=== PATIENT | female | born 1955 | race African-American/Black ===

== ENCOUNTER 2019-08-06 16:16 | Inpatient (IN) | payer OTHER ==
[~2019-08-06] VITALS: Ht 165.1 cm; Wt 63.5 kg
[2019-08-06 16:18] VITALS: BP 120/78
[2019-08-06 17:36] LABS: ABSOLUTE NEUTROPHILS 3.9 thou/uL (1.4-8.2); BASOPHILS 0.6 % (0.0-2.0); EOSINOPHILS 2.9 % (0.0-3.0); HEMATOCRIT 35.1 % (37.0-47.0); HEMOGLOBIN 11.5 gm/dL (12.0-15.0); LYMPHOCYTES 25.5 % (24.0-44.0); MCH 28.2 pg (26.0-34.0); MCHC 32.8 g/dL (28.0-37.0); MCV 85.9 fL (80.0-100.0); MONOCYTES 9.3 % (1.0-8.0); PLATELET COUNT 251 thou/uL (150-400); POLYS 61.7 % (36.0-66.0); RBC 4.08 mil/uL (4.20-5.00); RDW 14.6 % (10.5-14.5); WBC 6.4 thou/uL (4.0-11.0)
[2019-08-06 17:44] LABS: CALCIUM 8.9 mg/dL (8.5-10.1); CREATININE 0.9 mg/dL (0.6-1.0); POTASSIUM 3.8 mmol/L (3.5-5.1)
[2019-08-06 17:50] LABS: ALBUMIN 3.2 g/dL (3.4-5.0); APTT 36.3 Seconds (24.5-32.8); INR 1.2; PROTIME 12.1 Seconds (9.3-11.4); TOTAL BILIRUBIN 0.3 mg/dL (<0.1-1.0); TOTAL PROTEIN 8.6 g/dL (6.4-8.2)
--- NOTE | 2019-08-06 17:50 | NUR ---
ROSIE (CHARGE NURSE AT [facility]) NOT SURE OF WHERE PT HAD PEG PLACED- HE IS TO CONTACT BUSINESS PERFORMANCE SPECIALIST AT FACILITY TO GET MORE INFO. CALL BACK NUMBER PROVIDED
[2019-08-06 18:54] LABS: TSH 4.228 uIU/mL (0.358-3.740)
[2019-08-06 19:43] VITALS: BP 98/64
--- NOTE | 2019-08-06 19:46 | NUR ---
1ST ATTEMPT TO CALL REPORT AT 194
[2019-08-06 19:50] VITALS: BP 118/64
[2019-08-06 20:17] VITALS: BP 140/72
--- NOTE | 2019-08-07 02:06 | NUR ---
PT TO UNIT AROUND 1999. PT IS DEAF AND MUTE, COMMUNICATES USING SIGN LANGUAGE. ADMISSION ASSESSMENT AND HISTORY DONE BEST POSSIBLE. ASKED PT IF SHE IS IN PAIN IN ASL, RESPONSE WAS NO. BLOOD SUGAR WAS LOW THIS EVENING BUT RECHECKED AFTER FLUIDS WERE HUNG, BACK TO NORMAL. INCONTINENT OF B&B. EDUCATED ON USE OF CALL LIGHT. FALL PRECAUTIONS IN PLACE. SLEPT THE WHOLE EVENING, WILL CONTINUE TO CHECK ON HER. GI CONSULT CALLED TO REPLACE PEG TUBE. SIGHT DRY WITH A BANDAGE OVER IT.
[2019-08-07 03:42] VITALS: BP 128/67
[2019-08-07 07:51] VITALS: BP 127/67
[2019-08-07] MEDS ORDERED: SEROQUEL 25 MG25 MG PO (09:21)
[2019-08-07] MEDS ORDERED: FLOMAX0.4 MG PO (12:09)
[2019-08-07] MEDS ORDERED: ALPHAGAN P5 ML OPHTHALMIC (12:09)
[2019-08-07] MEDS ORDERED: DORZOLAMIDE 2%10 ML EA. EYE (12:09)
[2019-08-07] MEDS ORDERED: LEVO-T75 MCG PO (12:09)
[2019-08-07] MEDS ORDERED: XALATAN2.5 ML OPHTHALMIC (12:09)
[2019-08-07] MEDS ORDERED: KEPPRA XR500 MG PO (12:09)
[2019-08-07] MEDS ORDERED: XARELTO20 MG PO (12:09)
[2019-08-07] MEDS ORDERED: NORVASC 2.5 MG2.5 M1 PO (12:09)
--- NOTE | 2019-08-07 12:44 | NUR ---
FAXED CLINICAL UPDATE TO [facility] SPOKE WITH EWELINA IN ADM SHE RECEIVED UPDATE. DP TO FOLLOW.
--- NOTE | 2019-08-07 14:51 | NUR ---
CALLED HOSPITALIST PATIENT'S TUBE TO BE PLACED TOMMOROW. AND THEN SHE GOES BACK TO [facility] Saturday08/08/19. WILL CHANGE DIET TO MECH SOFT REGULAR. NPO AT MIDNIGHT. REINSTATE MEDS FROM [facility].
--- NOTE | 2019-08-07 15:21 | NUR ---
PT RESIDES AT [facility] IF DISCHARGE OVER WEEKEND PLEASE FAX THE DC ORDERS/SUMMARY TO [phone] AND CALL [phone] TO SET UP TRANSPORT.
--- NOTE | 2019-08-07 15:28 | NUR ---
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 PT IS DEAF BUT DOES KNOW SIMPLE SIGN LANGUAGE. PLAN IS FOR PEG TUBE TO BE REPLACED THEN PT WILL RETURN BACK TO [facility]. S/W DPOA PT'S MOM BY PHONE AND SHE SAYS PT GETS UP IN A WC AT THE FACILITY WITH ASSIST. PEG TUBE WILL BE PLACED TOMORROW, UNABLE TO PLACE TODAY DUE TO BLOOD THINNER. FOLLOWING TO ASSIST WITH ARRANGEMENTS BACK TO [facility].
--- NOTE | 2019-08-07 15:37 | NUR ---
PT RESIDES AT [facility] IF DISCHARGE OVER WEEKEND PLEASE FAX DC ORDERS/SUMMARY TO [phone] AND CALL [phone] TO SET UP TRANSPORTATION.
[2019-08-07 17:10] VITALS: BP 142/94
[2019-08-07 19:30] VITALS: BP 130/84
--- NOTE | 2019-08-07 19:47 | NUR ---
PT RESTING IN BED ALERT XS 3. READS LIPS PEG TUBE PLACEMENT SAT 08/08/19 PT TO BE NPO AT MIDNIGHT. BACK TO [facility].
--- NOTE | 2019-08-07 20:47 | NUR ---
0 aSSUMED CARE OF PT AFTER BEDSIDE REPORT. 2046, CONTACTED PHARMACY, PHARMACIST STATES OK TO GIVE 2100 DOSE OF KEPPRA, OK TO CRUSH AND PLACE IN APPLESAUCE.
[2019-08-08 04:10] VITALS: BP 128/72
--- NOTE | 2019-08-08 08:16 | NUR ---
PT LEFT UNIT AT THIS TIME FOR PEG TUBE PLACEMENT. PT ALERT NO S/S PAIN OR RESP DISTRESS.
[2019-08-08 11:24] VITALS: BP 134/87
--- NOTE | 2019-08-08 11:44 | NUR ---
PT BACK FROM TUBE PLACEMENT SITE CLEAN SCANT AMOUNT OF BLOOD AROUND PEG TUBE SITE. HAS ALSO BINDER IN PLACE V.S 97.6 18 80 134/87 O2 SAT = 100% RA. PT GIVEN AM MEDS AND SHE ATE BREAKFAST. CALLED [facility] GAVE REPORT TO VIRGIL MATUTE, SHE WILL CALL BACK WITH TRANSFER INFO.
--- NOTE | 2019-08-08 11:57 | NUR ---
SPOKE WITH [facility] SHE IS GOING TO TRY AND SET-UP TRANSPORTATION FOR PT TO GO BACK TO [facility].
--- NOTE | 2019-08-08 13:51 | NUR ---
PT DISCHARGED AT THIS TIME. LEFT [facility]. PT W/O PAIN OR RESP DISTRESS AT DISCHARGE. ALL BELONGINGS SENT WITH PATIENT. IV ACSESS DCD.
--- NOTE | 2019-08-09 14:37 | P ---
[facility] [place] [address] PROCEDURE REPORT Name: EASTON HENDRICKS Room #: 444-[facility] IN M.R.#: [id number] Admission: 08/06/19 Attend Phys: Kat Ojeda Discharge: 08/08/19 Date of : 51 Report #: [id number] THIS REPORT FOR: //name// CC: Clayton Beauchamp Kat Ojeda DATE OF SERVICE: 08/08/2019 GASTROINTESTINAL PROCEDURE NOTE DICTATING PHYSICIAN: Dr. Ashok Florian. PROCEDURE PERFORMED: EGD with PEG placement. INDICATIONS: Failure to maintain nutrition. She removed her PEG tube yesterday. MEDICATIONS: Propofol administered by the Anesthesia team. DESCRIPTION OF THE PROCEDURE: After informed consent was obtained, the patient was placed in supine position in the operating room. Anesthesia was administered and optimal sedation was achieved. The Fujinon gastroscope was introduced through the oropharynx and exam completed to the second portion of the duodenum. No abnormalities were detected. There was a prior closed PEG site noted in the body of the stomach. Transillumination was obtained and PEG was inserted successfully in the body of the stomach. The site of the PEG tube was 20-Gambian. There was minimal bleeding that resolved spontaneously. FINDINGS-RECOMMENDATIONS: 1. Successful PEG placement (20-Gambian) in the body of stomach. 2. Okay to discharge to longterm. 3. Resume tube feedings as before. Thank you for allowing me to participate in the care of the patient. <ELECTRONICALLY SIGNED> By: Ashok Florian MD 08/09/19 [id number] Ashok Florian MD /nt
== END 2019-08-08 13:57 | DRG 394 ==
LOC: ER 16:16 → EROBS 18:08 → 4S 18:08
PROVIDERS: Emergency Medicine; ADMIT Hospitalist
PROC: 0DH63UZ Insertion of Feeding Device into Stomach, Percutaneous Approach (ICD-10-PCS; principal; 2019-08-08)
DX: K94.23 Gastrostomy malfunction (principal); E44.1 Mild protein-calorie malnutrition; F03.90 Unspecified dementia, unspecified severity, without behavioral disturbance, psychotic disturbance, mood disturbance, and anxiety; Y83.3 Surgical operation with formation of external stoma as the cause of abnormal reaction of the patient, or of later complication, without mention of misadventure at the time of the procedure; Y82.8 Other medical devices associated with adverse incidents; E03.9 Hypothyroidism, unspecified; H40.9 Unspecified glaucoma; R13.10 Dysphagia, unspecified; F32.9 Major depressive disorder, single episode, unspecified; E78.5 Hyperlipidemia, unspecified; I10 Essential (primary) hypertension; G40.909 Epilepsy, unspecified, not intractable, without status epilepticus; F29 Unspecified psychosis not due to a substance or known physiological condition; Z79.899 Other long term (current) drug therapy; I69.320 Aphasia following cerebral infarction
CPT/HCPCS: 10102; 62110; 62900; 70005